=== PATIENT | female | born 1995 | race Caucasian/White ===

== ENCOUNTER 2022-09-09 01:26 | Emergency (ER) | payer SELFPAY ==
[2022-09-09 01:33] VITALS: BP 90/56; PULSE 85; RESP 18; TEMP 98.3; BMI 24.5
== END 2022-09-09 03:26 | disposition home or self-care (01) ==
LOC: JER 01:26
DX: F41.9 Anxiety disorder, unspecified (principal)
CPT/HCPCS: 93005; 93010; 99283-25

== ENCOUNTER 2022-12-25 11:11 | Inpatient (IN) | payer OTHER ==
[2022-12-25 11:31] VITALS: BMI 24.1
[2022-12-25 12:02] LABS: EPI CELLS >36 /uL (0-25.1); HYALINE CASTS 5 /uL (0-3.1); PH,URINE 7.5 (5.0-8.0); URINE APPEARANCE TURBID; URINE BACTERIA 5814 /uL (0-1359); URINE BILIRUBIN NEGATIVE (NEGATIVE); URINE COLOR YELLOW; URINE GLUCOSE (UA) NEGATIVE (NEGATIVE); URINE KETONE 1+ (NEGATIVE); URINE LEUK ESTERASE 2+ (NEGATIVE); URINE NITRITE POSITIVE (NEGATIVE); URINE PROTEIN NEGATIVE (NEGATIVE); URINE WBC 260 /uL (0-25.8)
[2022-12-25 12:06] LABS: URINE RBC 36.5 /uL (0-23.9)
[2022-12-25] MEDS ORDERED: SODIUM CHLORIDE 0.9% 1000 ML INFUS.BAG IV ONE (12:56)
[2022-12-25] MEDS ORDERED: ACETAMINOPHEN 325 MG TABLET (FP) PO ONE (12:56)
[2022-12-25 13:47] LABS: BASO % 0.2 % (0-2.0); EOS % 0.1 % (0-4.5); HEMATOCRIT 29.6 % (32.4-45.2); HEMOGLOBIN 10.2 GM/dL (10.7-15.3); LYMPH % 9.4 % (8-40); MCH 30.6 pg (25.7-33.7); MCHC 34.4 g/dl (32.0-36.0); MEAN CELL VOLUME 89.1 fl (80-96); MEAN PLT VOLUME 7.6 fl (7.5-11.1); MONO % 6.5 % (3.8-10.2); NEUT % 83.8 % (42.8-82.8); PLATELET COUNT 229 10^3/uL (134-434); RBC 3.33 M/mm3 (3.60-5.2); RDW 14.7 % (11.6-15.6); WHITE BLOOD COUNT 11.4 K/mm3 (4.0-10.0)
[2022-12-25 14:05] LABS: POTASSIUM 4.2 mmol/L (3.5-5.1)
[2022-12-25 14:07] LABS: CALCIUM 8.9 mg/dL (8.5-10.1)
[2022-12-25 14:08] LABS: ALBUMIN 2.9 g/dl (3.4-5.0); BLOOD UREA NITROGEN 5.5 mg/dL (7-18)
[2022-12-25 14:11] LABS: CREATININE 0.4 mg/dL (0.55-1.3)
[2022-12-25 14:12] LABS: BILIRUBIN,TOTAL 0.4 mg/dL (0.2-1)
[2022-12-25] MEDS ORDERED: CEFTRIAXONE 1,000 MG in DEXTROSE 5%-WATER - 50 ML IVPB ONE (14:46)
[2022-12-25] MEDS ORDERED: CEFTRIAXONE 1 GM/50 ML BAG ONE (14:58)
[2022-12-25] MEDS ORDERED: ACETAMINOPHEN 325 MG TABLET (FP) ONE ×3 (15:03→19:55)
[2022-12-25] MEDS ORDERED: ACETAMINOPHEN 500 MG TABLET (FP) PO ONE (16:39)
[2022-12-25] MEDS: ACETAMINOPHEN 325 MG TABLET (FP) PO PRN ×2 (19:59→23:06)
[2022-12-25] MEDS: SODIUM CHLORIDE 1,000 ML IV SCH (23:07)
[2022-12-26] MEDS: ACETAMINOPHEN 325 MG TABLET (FP) PO PRN (05:37)
[2022-12-26] MEDS: HEPARIN NA (PORCINE) 5,000 UNITS/ML 1ML VIAL SQ SCH ×4 (05:41→22:54)
[2022-12-26 09:07] LABS: BASO % 0.4 % (0-2.0); EOS % 0.1 % (0-4.5); HEMATOCRIT 24.7 % (32.4-45.2); HEMOGLOBIN 8.5 GM/dL (10.7-15.3); LYMPH % 14.6 % (8-40); MCH 31.1 pg (25.7-33.7); MCHC 34.6 g/dl (32.0-36.0); MEAN CELL VOLUME 89.7 fl (80-96); MEAN PLT VOLUME 7.5 fl (7.5-11.1); MONO % 9.7 % (3.8-10.2); NEUT % 75.2 % (42.8-82.8); PLATELET COUNT 211 10^3/uL (134-434); RBC 2.75 M/mm3 (3.60-5.2); RDW 15.1 % (11.6-15.6); WHITE BLOOD COUNT 12.7 K/mm3 (4.0-10.0)
[2022-12-26 09:31] LABS: POTASSIUM 3.5 mmol/L (3.5-5.1)
[2022-12-26 09:38] LABS: ALBUMIN 2.4 g/dl (3.4-5.0); BLOOD UREA NITROGEN 3.4 mg/dL (7-18); PHOSPHOROUS 3.1 mg/dL (2.5-4.9)
[2022-12-26 09:41] LABS: BILIRUBIN,TOTAL 0.4 mg/dL (0.2-1); CALCIUM 8.3 mg/dL (8.5-10.1); CREATININE 0.4 mg/dL (0.55-1.3)
[2022-12-26 09:42] LABS: MAGNESIUM 2.1 mg/dL (1.8-2.4)
[2022-12-26] MEDS: CEFTRIAXONE 1 GM in DEXTROSE 5%-WATER - 50 ML IVPB SCH (09:57)
[2022-12-26] MEDS: PRENATAL VITAMINS W/ FOLIC ACID TABLET (FP) PO SCH (12:00)
[2022-12-26] MEDS: SODIUM CHLORIDE 1,000 ML IV SCH (21:19)
[2022-12-26] MEDS: FERROUS GLUCONATE 324 MG TAB (FP) PO SCH (22:54)
[2022-12-27] MEDS: HEPARIN NA (PORCINE) 5,000 UNITS/ML 1ML VIAL SQ SCH (06:08)
[2022-12-27 06:13] VITALS: RESP 18
[2022-12-27] MEDS: SODIUM CHLORIDE 1,000 ML IV SCH (08:45)
[2022-12-27] MEDS: FERROUS GLUCONATE 324 MG TAB (FP) PO SCH (09:04)
[2022-12-27] MEDS: CEFTRIAXONE 1 GM in DEXTROSE 5%-WATER - 50 ML IVPB SCH (09:04)
[2022-12-27] MEDS: PRENATAL VITAMINS W/ FOLIC ACID TABLET (FP) PO SCH (09:04)
[2022-12-27 15:04] VITALS: BP 92/56; PULSE 99; TEMP 98.2
== END 2022-12-27 15:13 | disposition home or self-care (01) | DRG 566 ==
LOC: JER 11:11 → JERBED 16:14 → J7W 20:37
PROVIDERS: ADMIT Internal Medicine
DX: O23.42 Unspecified infection of urinary tract in pregnancy, second trimester (principal); O99.012 Anemia complicating pregnancy, second trimester; A41.9 Sepsis, unspecified organism; N12 Tubulo-interstitial nephritis, not specified as acute or chronic; B96.20 Unspecified Escherichia coli [E. coli] as the cause of diseases classified elsewhere; Z3A.19 19 weeks gestation of pregnancy
CPT/HCPCS: 0241U-QW; 36415; 76775-TC; 76801-TC; 76815; 80053; 81003; 83605; 83735; 84100; 85025; 87040; 87086; 87186; 99285-25; J1644

== ENCOUNTER 2023-01-20 05:50 | Inpatient (IN) | payer OTHER ==
[2023-01-20] MEDS ORDERED: ACETAMINOPHEN 325 MG TABLET (FP) PO ONE (06:45)
[2023-01-20] MEDS: LACTATED RINGERS SOLUTION 1,000 ML IV ONE (07:15)
[2023-01-20] MEDS ORDERED: ACETAMINOPHEN 1000 MG/100 ML BAG IVPB ONE (07:25)
[2023-01-20] MEDS ORDERED: ACETAMINOPHEN INJECTION 100 ML IVPB ONE (07:27)
[2023-01-20 08:35] LABS: EPI CELLS >36 /uL (0-25.1); HYALINE CASTS 1 /uL (0-3.1); URINE APPEARANCE CLOUDY; URINE BACTERIA 1015 /uL (0-1359); URINE BILIRUBIN NEGATIVE (NEGATIVE); URINE COLOR YELLOW; URINE GLUCOSE (UA) NEGATIVE (NEGATIVE); URINE KETONE NEGATIVE (NEGATIVE); URINE LEUK ESTERASE 3+ (NEGATIVE); URINE NITRITE NEGATIVE (NEGATIVE); URINE PROTEIN NEGATIVE (NEGATIVE); URINE RBC 150 /uL (0-23.9); URINE UROBILINOGEN 0.2 mg/dL (0.2-1.0); URINE WBC 130 /uL (0-25.8)
[2023-01-20 09:33] LABS: BASO % 0.4 % (0-2.0); EOS % 0.4 % (0-4.5); HEMOGLOBIN 8.8 GM/dL (10.7-15.3); MCH 30.6 pg (25.7-33.7); MCHC 33.9 g/dl (32.0-36.0); MEAN CELL VOLUME 90.1 fl (80-96); MEAN PLT VOLUME 7.8 fl (7.5-11.1); MONO % 6.6 % (3.8-10.2); NEUT % 69.6 % (42.8-82.8); PLATELET COUNT 211 10^3/uL (134-434); RBC 2.88 M/mm3 (3.60-5.2); RDW 15.1 % (11.6-15.6); WHITE BLOOD COUNT 8.6 K/mm3 (4.0-10.0)
[2023-01-20] MEDS ORDERED: ONDANSETRON 4 MG/2 ML VIAL IVPUSH PRN (09:55)
[2023-01-20] MEDS ORDERED: ceFAZolin 2 GRAM PREMIX BAG IVPB SCH (10:00)
[2023-01-20] MEDS ORDERED: CEFAZOLIN SODIUM 2 GM VIAL ONE (10:07)
[2023-01-20] MEDS ORDERED: DEXTROSE 5%-WATER - 50 ML IVPB ONE (10:09)
[2023-01-20] MEDS ORDERED: CEFAZOLIN SODIUM 2 GM in DEXTROSE 5%-WATER 50 ML IVPB SCH (10:15)
[2023-01-20 10:49] VITALS: BMI 23.8
[2023-01-20] MEDS ORDERED: ACETYLCYSTEINE 20% 200MG/ML 30ML VIAL *FOR INJECTION USE ONLY IVPB PRN (11:22)
[2023-01-20] MEDS ORDERED: ACETAMINOPHEN 1000 MG/100 ML BAG IVPB PRN (13:00)
[2023-01-20 14:37] LABS: INR 1.02 (0.83-1.09); PROTHROMBIN TIME (PATIENT) 11.8 SEC (9.7-13.0)
[2023-01-20 14:40] LABS: ACTIVATED PTT 28.5 SECONDS (25.2-36.5)
[2023-01-20 14:49] LABS: CALCIUM 8.8 mg/dL (8.5-10.1)
[2023-01-20 14:50] LABS: ALBUMIN 2.7 g/dl (3.4-5.0); BLOOD UREA NITROGEN 6.8 mg/dL (7-18)
[2023-01-20 14:53] LABS: CREATININE 0.4 mg/dL (0.55-1.3)
[2023-01-20 14:54] LABS: TOT PROT 6.5 g/dl (6.4-8.2)
[2023-01-20 14:55] LABS: BILIRUBIN,TOTAL 0.2 mg/dL (0.2-1)
[2023-01-20 15:13] LABS: SYPHILIS W/ RPR CONF NON-REACTIVE (NONREACTIVE)
[2023-01-20 15:42] LABS: HIV INTERPRETATION NEGATIVE (NEGATIVE)
[2023-01-20] MEDS: CEFAZOLIN SODIUM 2 GM in DEXTROSE 5%-WATER 100 ML IVPB SCH (17:29)
[2023-01-21] MEDS: CEFAZOLIN SODIUM 2 GM in DEXTROSE 5%-WATER 100 ML IVPB SCH ×3 (01:19→18:16)
[2023-01-21] MEDS: LACTATED RINGERS SOLUTION 1,000 ML IV ONE (01:20)
[2023-01-21] MEDS: FERROUS SO4 325 MG TABLET (FP) PO SCH (09:45)
[2023-01-22] MEDS: CEFAZOLIN SODIUM 2 GM in DEXTROSE 5%-WATER 100 ML IVPB SCH ×3 (01:07→17:24)
[2023-01-22] MEDS: FERROUS SO4 325 MG TABLET (FP) PO SCH (09:41)
[2023-01-22 11:22] LABS: ALBUMIN 2.4 g/dl (3.4-5.0); CALCIUM 8.2 mg/dL (8.5-10.1)
[2023-01-22 11:23] LABS: BLOOD UREA NITROGEN 5.8 mg/dL (7-18)
[2023-01-22 11:25] LABS: CREATININE 0.3 mg/dL (0.55-1.3)
[2023-01-22 11:27] LABS: BILIRUBIN,TOTAL 0.1 mg/dL (0.2-1)
[2023-01-23] MEDS: CEFAZOLIN SODIUM 2 GM in DEXTROSE 5%-WATER 100 ML IVPB SCH ×2 (01:28→09:45)
[2023-01-23 08:29] LABS: BASO % 0.5 % (0-2.0); EOS % 1.9 % (0-4.5); HEMATOCRIT 27.4 % (32.4-45.2); HEMOGLOBIN 9.6 GM/dL (10.7-15.3); LYMPH % 31.5 % (8-40); MCHC 34.9 g/dl (32.0-36.0); MEAN CELL VOLUME 88.7 fl (80-96); MEAN PLT VOLUME 8.1 fl (7.5-11.1); MONO % 7.2 % (3.8-10.2); NEUT % 58.9 % (42.8-82.8); PLATELET COUNT 205 10^3/uL (134-434); RBC 3.09 M/mm3 (3.60-5.2); RDW 14.9 % (11.6-15.6); WHITE BLOOD COUNT 8.9 K/mm3 (4.0-10.0)
[2023-01-23 08:37] VITALS: BP 95/55; PULSE 93; RESP 18; TEMP 98.2
[2023-01-23] MEDS: FERROUS SO4 325 MG TABLET (FP) PO SCH (09:45)
== END 2023-01-23 12:30 | disposition home or self-care (01) | DRG 566 ==
LOC: JDEL 05:50 → JLDR 09:45 → J3W 16:40
PROVIDERS: ADMIT Student in an Organized Health Care Education/Training Program; ATTEND Student in an Organized Health Care Education/Training Program
DX: O23.02 Infections of kidney in pregnancy, second trimester (principal); O99.891 Other specified diseases and conditions complicating pregnancy; N13.30 Unspecified hydronephrosis; Z3A.23 23 weeks gestation of pregnancy
CPT/HCPCS: 36415; 76775-TC; 80053; 81003; 85025; 85610; 85730; 86762; 86780; 86850; 86900; 86901; 87086; 87340; 87389; 87491; 87591; C9803-CS; U0003; U0005

== ENCOUNTER 2023-11-15 11:54 | Emergency (ER) | payer OTHER ==
[2023-11-15 12:06] VITALS: BP 98/58; PULSE 89; RESP 18; TEMP 98; BMI 31.2
== END 2023-11-15 14:00 | disposition left against medical advice (07) ==
LOC: JER 11:54
DX: R10.30 Lower abdominal pain, unspecified (principal)
CPT/HCPCS: 99281-25